=== PATIENT | female | born 1995 | race Caucasian/White ===

== ENCOUNTER 2017-11-14 12:16 | Emergency (ER) | payer SELFPAY ==
[~2017-11-14] VITALS: Ht 170.2 cm; Wt 79.7 kg
[2017-11-14] MEDS ORDERED: DIPH,PERTUSS(ACELL),TET VAC/PF 0.5 ML IM-VACC ONE (13:00)
[2017-11-14] MEDS ORDERED: FLUO20CA19 PO (13:51)
[2017-11-14] MEDS ORDERED: KETOROLAC 30 MG/1 ML ONE (13:51)
[2017-11-14] MEDS ORDERED: KETOROLAC 30 MG/1 ML IM ONE (14:00)
[2017-11-14 14:35] VITALS: BP 111/71
== END 2017-11-14 14:38 | disposition home or self-care (01) ==
LOC: ED 14:32
DX: S16.1XXA Strain of muscle, fascia and tendon at neck level, initial encounter (principal); S00.83XA Contusion of other part of head, initial encounter; S00.33XA Contusion of nose, initial encounter; S00.12XA Contusion of left eyelid and periocular area, initial encounter; S00.11XA Contusion of right eyelid and periocular area, initial encounter; V47.1XXA Car passenger injured in collision with fixed or stationary object in nontraffic accident, initial encounter; Y93.89 Activity, other specified; Y92.89 Other specified places as the place of occurrence of the external cause; Y99.8 Other external cause status
CPT/HCPCS: 70450; 70486; 72125; 96372; 99284; J1885

== ENCOUNTER 2019-11-07 09:16 | Emergency (ER) | payer OTHER ==
[~2019-11-07 09:16] MED LIST: FLUO20CA19 PO
[2019-11-07 09:18] VITALS: BP 120/54
--- NOTE | 2019-11-07 09:19 | NUR ---
CONTENT EDITOR: [facility] CALLED TO NOTIFY OF PT ROOM ASSIGNMENT.
--- NOTE | 2019-11-07 09:24 | NUR ---
WELDER MANUFACTURE: RECEIVED CALL FROM L&D, PT TO GO TO L&D UPON DC FROM ED.
== END 2019-11-07 10:09 | disposition home or self-care (01) ==
LOC: ED 09:30
DX: Z04.89 Encounter for examination and observation for other specified reasons (principal); Z3A.24 24 weeks gestation of pregnancy; W01.0XXA Fall on same level from slipping, tripping and stumbling without subsequent striking against object, initial encounter; Y93.89 Activity, other specified; Y92.098 Other place in other non-institutional residence as the place of occurrence of the external cause; Y99.8 Other external cause status
CPT/HCPCS: 99281

== ENCOUNTER 2019-11-07 10:46 | Outpatient (CLI) | payer OTHER ==
[2019-11-07 11:42] VITALS: BP 127/65
== END 2019-11-07 11:34 | disposition home or self-care (01) ==
LOC: LDOP 10:46
PROVIDERS: ATTEND Student in an Organized Health Care Education/Training Program
DX: O26.892 Other specified pregnancy related conditions, second trimester (principal); Z3A.24 24 weeks gestation of pregnancy; W19.XXXA Unspecified fall, initial encounter; Y93.9 Activity, unspecified; Y92.89 Other specified places as the place of occurrence of the external cause; Y99.8 Other external cause status
CPT/HCPCS: 99211; G0463